=== PATIENT | female | born 1985 | race American Indian/Alaskan Native ===

== ENCOUNTER 2019-09-30 00:39 | Emergency (ER) | payer MEDICAID ==
[2019-09-30 00:57] VITALS: BP 134/84
[2019-09-30 01:25] LABS: Hematocrit 34.1 % (30.3-42.9); Hemoglobin 11.4 gm/dl (10.1-14.3); Mean Corpuscular HGB Conc 34 % (30-34); Mean Corpuscular Volume 83 fl (79-97); Platelet Count 246 K/mm3 (140-440); Red Blood Count 4.12 M/mm3 (3.65-5.03); Red Cell Distribution Width 14.5 % (13.2-15.2)
[2019-09-30] MEDS ORDERED: ONDANSETRON 4 MG ODT TAB PO ONE (01:40)
[2019-09-30 01:43] LABS: Bilirubin,Urine NEG (Negative); Blood,Urine NEG (Negative); Color,Urine Yellow (Yellow); Mucus,Urine 1+ /HPF; Protein,Urine <15 mg/dL mg/dL (Negative)
[2019-09-30 01:52] LABS: Alanine Aminotransferase 9 units/L (7-56); Albumin 3.4 g/dL (3.9-5); BUN/Creatinine Ratio 12; Blood Urea Nitrogen 6 mg/dL (7-17); Calcium 8.8 mg/dL (8.4-10.2); Hemolysis Index 28
[2019-09-30] MEDS ORDERED: SODIUM CHLORIDE 0.9% 500 ML 500 ML IV ONE (01:59)
--- NOTE | 2019-09-30 02:02 | Emergency Department Report ---
ED Abdominal Pain HPI - General Chief Complaint: Abdominal Pain Stated Complaint: DIZZINESS/ABD PAIN Time Seen by Provider: 09/30/19 01:29 Source: patient Mode of arrival: Ambulatory Limitations: No Limitations - History of Present Illness Initial Comments: Ms. Christensen is a 34-year-old -[place] female she is G4, last menstrual cycle 12 weeks ago. He presents for left-sided low quadrant and flank pain radiating to suprapubic she states urinary frequency she had spotting 2 weeks ago and spotting 1 week ago with no bleeding at this time she has has not had ultrasound to this point. She is followed by [facility]. She denies fevers or chills there is no nausea vomiting. She denies dysuria ,there is urinary frequency. she is denies concern for STI. MD Complaint: abdominal pain Onset/Timin -: week(s) Location: LLQ, suprapubic Radiation: suprapubic Severity scale (0 -10): 4 Quality: cramping Consistency: intermittent Improves With: nothing Worsens With: movement Associated Symptoms: nausea, dysuria (frequency). denies: vomiting, diarrhea, fever, chills, constipation - Related Data LMP Date: 06/21/19 LMP (females 10-50): 3 months Previous Rx's Medication Instructions Recorded Last Taken Type Ibuprofen [Motrin] 800 mg PO Q8H PRN #30 tablet 01/06/15 Unknown Rx traMADoL [Ultram] 50 mg PO Q6HR PRN #14 tablet 01/06/15 Unknown Rx Acetaminophen [Acetaminophen TAB] 650 mg PO Q6HR PRN #30 tablet 09/30/19 Unknown Rx cephALEXin [Keflex] 500 mg PO BID 7 Days #17 cap 09/30/19 Unknown Rx Allergies Allergy/AdvReac Type Severity Reaction Status Date / Time No Known Allergies Allergy Verified 01/06/15 03:05 ED Review of Systems ROS: Stated complaint: DIZZINESS/ABD PAIN Other details as noted in HPI Constitutional: denies: chills, fever Eyes: denies: eye pain, eye discharge, vision change ENT: denies: ear pain, throat pain Respiratory: denies: cough, shortness of breath, wheezing Cardiovascular: denies: chest pain, palpitations Endocrine: no symptoms reported Gastrointestinal: abdominal pain, nausea. denies: vomiting, diarrhea, constipation, melena Genitourinary: urgency, frequency. denies: dysuria, hematuria, discharge Musculoskeletal: back pain (left flank). denies: joint swelling, arthralgia Skin: denies: rash, lesions Neurological: denies: headache, weakness, paresthesias Psychiatric: denies: anxiety, depression Hematological/Lymphatic: denies: easy bleeding, easy bruising ED Past Medical Hx - Past Medical History Previous Medical History?: Yes Hx Hypertension: Yes - Surgical History Past Surgical History?: No - Social History Smoking Status: Current Every Day Smoker Substance Use Type: None - Medications Home Medications: Home Medications Medication Instructions Recorded Confirmed Last Taken Type Ibuprofen [Motrin] 800 mg PO Q8H PRN #30 tablet 01/06/15 Unknown Rx traMADoL [Ultram] 50 mg PO Q6HR PRN #14 tablet 01/06/15 Unknown Rx Acetaminophen [Acetaminophen TAB] 650 mg PO Q6HR PRN #30 tablet 09/30/19 Unknown Rx cephALEXin [Keflex] 500 mg PO BID 7 Days #17 cap 09/30/19 Unknown Rx ED Physical Exam - General Limitations: No Limitations General appearance: alert, in no apparent distress - Head Head exam: Present: atraumatic - Eye Eye exam: Present: normal appearance, PERRL, EOMI Pupils: Present: normal accommodation - ENT ENT exam: Present: mucous membranes moist - Neck Neck exam: Present: normal inspection - Respiratory Respiratory exam: Present: normal lung sounds bilaterally. Absent: respiratory distress, wheezes, stridor, chest wall tenderness - Cardiovascular Cardiovascular Exam: Present: regular rate, normal rhythm, normal heart sounds. Absent: systolic murmur, diastolic murmur, rubs, gallop - GI/Abdominal GI/Abdominal exam: Present: soft, tenderness (bilat lower abd ), normal bowel sounds. Absent: guarding, rebound, rigid, bruit, hernia - Rectal Rectal exam: Present: deferred - External exam: Present: other (pt deferrs to OBGYN) - Extremities Exam Extremities exam: Present: normal inspection, full ROM, pedal edema. Absent: tenderness - Back Exam Back exam: Present: normal inspection, full ROM. Absent: tenderness, CVA tenderness (R), CVA tenderness (L) - Neurological Exam Neurological exam: Present: alert, oriented X3, CN II-XII intact, normal gait - Psychiatric Psychiatric exam: Present: normal affect, normal mood - Skin Skin exam: Present: warm, dry, intact, normal color. Absent: rash ED Course Vital Signs 09/30/19 09/30/19 00:44 03:10 Temperature 98.8 F Pulse Rate 80 Respiratory 18 20 Rate Blood Pressure 134/84 O2 Sat by Pulse 100 Oximetry ED Medical Decision Making - Lab Data Result diagrams: 09/30/19 01:11 09/30/19 01:11 Labs 09/30/19 09/30/19 09/30/19 01:11 01:11 01:11 WBC 5.7 RBC 4.12 Hgb 11.4 Hct 34.1 MCV 83 MCH 28 MCHC 34 RDW 14.5 Plt Count 246 Sodium 140 Potassium 4.0 Chloride 108.4 H Carbon Dioxide 17 L Anion Gap 19 BUN 6 L Creatinine 0.5 L Estimated GFR > 60 BUN/Creatinine Ratio 12 Glucose 91 Calcium 8.8 Total Bilirubin < 0.20 AST 15 ALT 9 Alkaline Phosphatase 72 Total Protein 7.2 Albumin 3.4 L Albumin/Globulin Ratio 0.9 HCG, Qual Positive Urine Color Urine Turbidity Urine pH Ur Specific [place] Urine Protein Urine Glucose (UA) Urine Ketones Urine Blood Urine Nitrite Urine Bilirubin Urine Urobilinogen Ur Leukocyte Esterase Urine WBC (Auto) Urine RBC (Auto) U Epithel Cells (Auto) Urine Mucus 09/30/19 01:20 WBC RBC Hgb Hct MCV MCH MCHC RDW Plt Count Sodium Potassium Chloride Carbon Dioxide Anion Gap BUN Creatinine Estimated GFR BUN/Creatinine Ratio Glucose Calcium Total Bilirubin AST ALT Alkaline Phosphatase Total Protein Albumin Albumin/Globulin Ratio HCG, Qual Urine Color Yellow Urine Turbidity Clear Urine pH 6.0 Ur Specific [place] 1.025 Urine Protein <15 mg/dl Urine Glucose (UA) Neg Urine Ketones Neg Urine Blood Neg Urine Nitrite Neg Urine Bilirubin Neg Urine Urobilinogen 4.0 Ur Leukocyte Esterase Neg Urine WBC (Auto) 3.0 Urine RBC (Auto) 4.0 U Epithel Cells (Auto) 5.0 Urine Mucus 1+ - Radiology Data Radiology results: report reviewed, image reviewed Findings [facility] [address] [place] [address] Ultrasound Report Signed Patient: YESSI CHRISTENSEN MR#: [id number] : 1985 Acct:[id number] Age/Sex: 34 / F ADM Date: 09/30/19 Loc: ED Attending Dr: Ordering Physician: KENDRA LUKE NP Date of Service: 09/30/19 Procedure(s): US OB >= 14 weeks Fetus Accession Number(s): [id number] cc: KENDRA LUKE NP ULTRASOUND OBSTETRIC Indication: abd pain pos preg Findings: There is a single intrauterine . BPD = 2.4 cm = 14 weeks, 0 day(s). Head circumference = 9.7 cm = 14 weeks, 3 day(s). Abdominal circumference = 8.1 cm = 14 weeks, 3 day(s). Femur length = 1.2 cm = 13 weeks, 4 day(s). Overall estimated sonographic age = 14 weeks, 1 day(s). heart rate is 145 beats per minute. position is cephalic. Cervix appears closed. movement is present. Placenta is posteriorly on the right and grade 0 . Amniotic fluid volume appears normal. Impression: 1. Single living intrauterine with estimated sonographic age of 14 weeks, 1 day(s). 2. No sonographic abnormality identified. Signer Name: Nasim Cho MD Signed: 09/30/2019 3:01 AM Workstation Name: [id number] Transcribed By: SS Dictated By: Nasim Cho MD Electronically Authenticated By: Nasim Cho MD S igned Date/Time: 09/30/19 030 DD/ 025 TD/TT: - Medical Decision Making Ultrasound OB, single IUP 14 weeks and 1 day, heart rate 145, no abno rmalities. Plan treat for urinary urgency, patient will follow-up with [facility] in 2 to 3 days. Will DC to home with prescription for Keflex , and Tylenol. Patient is currently tolerating p.o. intake without symptoms. Patient DC'd home in stable condition at this time Critical care attestation.: If time is entered above; I have spent that time in minutes in the direct care of this critically ill patient, excluding procedure time. ED Disposition Clinical Impression: Urinary tract infection during Qualifiers: Trimester: second trimester Qualified Code(s): O23.42 - Unspecified infection of urinary tract in , second trimester Qualifiers: Weeks of gestation: 14 weeks Qualified Code(s): Z3A.14 - 14 weeks gestation of Disposition: DC-01 TO HOME OR SELFCARE Is pt being admited?: No Does the pt Need Aspirin: No Condition: Stable Instructions: Urinary Tract Infection in Women (ED), (ED) Prescriptions: Acetaminophen [Acetaminophen TAB] 650 mg PO Q6HR PRN #30 tablet PRN Reason: Pain cephALEXin [Keflex] 500 mg PO BID 7 Days #17 cap Referrals: [facility] [Provider Group] - 3-5 Days Forms: Work/School Release Form(ED) Time of Disposition: 03:32
[2019-09-30] MEDS ORDERED: ACETAMINOPHEN 500 MG TAB PO ONE (02:58)
[2019-09-30] MEDS ORDERED: SODIUM CHLORIDE 0.9% 1000 ML 1,000 ML IV ONE (02:59)
[2019-09-30] MEDS ORDERED: SODIUM CHLORIDE 0.9% 1000 ML 1,000 ML ONE (03:00)
--- NOTE | 2019-09-30 03:05 | Ultrasound Report ---
ULTRASOUND OBSTETRIC Indication: abd pain pos preg Findings: There is a single intrauterine . BPD = 2.4 cm = 14 weeks, 0 day(s). Head circumference = 9.7 cm = 14 weeks, 3 day(s). Abdominal circumference = 8.1 cm = 14 weeks, 3 day(s). Femur length = 1.2 cm = 13 weeks, 4 day(s). Overall estimated sonographic age = 14 weeks, 1 day(s). heart rate is 145 beats per minute. position is cephalic. Cervix appears closed. movement is present. Placenta is posteriorly on the right and grade 0 . Amniotic fluid volume appears normal. Impression: 1. Single living intrauterine with estimated sonographic age of 14 weeks, 1 day(s). 2. No sonographic abnormality identified. Signer Name: Nasim Cho MD Signed: 09/30/2019 3:01 AM Workstation Name: [id number]
== END 2019-09-30 03:52 | disposition home or self-care (01) ==
LOC: ED 00:39
DX: O23.42 Unspecified infection of urinary tract in pregnancy, second trimester (principal); I10 Essential (primary) hypertension; O99.332 Smoking (tobacco) complicating pregnancy, second trimester; Z3A.14 14 weeks gestation of pregnancy
CPT/HCPCS: 36415; 76805; 80053; 81001; 84702; 84703; 85027; 96360; 99284; J7030; Q0162

== ENCOUNTER 2021-07-30 01:17 | Emergency (ER) | payer MEDICAID ==
[2021-07-30 02:52] VITALS: BP 177/105
[2021-07-30] MEDS ORDERED: MORPHINE 4 MG/1 ML INJ IM ONE (06:11)
[2021-07-30] MEDS ORDERED: ONDANSETRON 4 MG ODT TAB PO ONE (06:11)
--- NOTE | 2021-07-30 06:12 | Emergency Department Report ---
ED Back Pain/Injury HPI - General Chief Complaint: Back Pain/Injury Stated Complaint: LOWER BACK AND LEG PAIN Time Seen by Provider: 07/30/21 05:58 Source: patient Limitations: No Limitations - History of Present Illness Initial Comments: Patient presents with back pain of a several day history. This is nontraumatic. She states he is having pain in the lower back. She woke up with it several days ago. She did go to see a physician and was prescribed Robaxin and Motrin. That helped for a couple of days. Now she is having increasing pain. It is described as an aching pain and soreness in the lower back. It does radiate down the left leg but only when she stands or walks. When she is recumbent or sitting, she does not have left leg pain. She is also now developed some urinary frequency and urgency. There is no saddle anesthesia. She has no incontinence. There is no history of trauma. She denies fevers or chills. She has not noticed any upper extremity complaints. There is no abdominal complaint. She came in for evaluation treatment as she has never had symptoms like this before. - Related Data Previous Rx's Medication Instructions Recorded Last Taken Type Ibuprofen [Motrin] 800 mg PO Q8H PRN #30 tablet 01/06/15 Unknown Rx traMADoL [Ultram] 50 mg PO Q6HR PRN #14 tablet 01/06/15 Unknown Rx Acetaminophen [Acetaminophen TAB] 650 mg PO Q6HR PRN #30 tablet 09/30/19 Unknown Rx cephALEXin [Keflex] 500 mg PO BID 7 Days #17 cap 09/30/19 Unknown Rx Lidocaine [Lidoderm] 1 each TP DAILY #30 adh..patch 07/30/21 Unknown Rx Metaxalone [Skelaxin] 800 mg PO TID #9 tablet 07/30/21 Unknown Rx Allergies Allergy/AdvReac Type Severity Reaction Status Date / Time No Known Allergies Allergy Verified 07/30/21 02:53 ED Review of Systems ROS: Stated complaint: LOWER BACK AND LEG PAIN Other details as noted in HPI Comment: All other systems reviewed and negative Constitutional: denies: fever Eyes: denies: vision change ENT: denies: throat pain Respiratory: denies: cough Cardiovascular: denies: chest pain Endocrine: denies: unexplained weight loss Gastrointestinal: denies: abdominal pain Genitourinary: as per HPI Musculoskeletal: as per HPI Skin: denies: rash Neurological: denies: headache Hematological/Lymphatic: denies: easy bruising ED Past Medical Hx - Past Medical History Hx Hypertension: Yes - Surgical History Past Surgical History?: No - Family History Family history: hypertension - Social History Smoking Status: Current Every Day Smoker (We discussed tobacco cessation x3 minutes) Substance Use Type: None - Medications Home Medications: Home Medications Medication Instructions Recorded Confirmed Last Taken Type Ibuprofen [Motrin] 800 mg PO Q8H PRN #30 tablet 01/06/15 Unknown Rx traMADoL [Ultram] 50 mg PO Q6HR PRN #14 tablet 01/06/15 Unknown Rx Acetaminophen [Acetaminophen TAB] 650 mg PO Q6HR PRN #30 tablet 09/30/19 Unknown Rx cephALEXin [Keflex] 500 mg PO BID 7 Days #17 cap 09/30/19 Unknown Rx Lidocaine [Lidoderm] 1 each TP DAILY #30 adh..patch 07/30/21 Unknown Rx Metaxalone [Skelaxin] 800 mg PO TID #9 tablet 07/30/21 Unknown Rx ED Physical Exam - General Limitations: No Limitations, Other (Pulse ox noted and normal) General appearance: alert, in no apparent distress, obese, other (Appears uncomfortable) - Head Head exam: Present: atraumatic, normocephalic - Eye Eye exam: Present: normal appearance, EOMI - ENT ENT exam: Present: normal orophraynx, normal external ear exam - Neck Neck exam: Present: normal inspection, meningismus - Respiratory Respiratory exam: Present: normal lung sounds bilaterally. Absent: respiratory distress - Cardiovascular Cardiovascular Exam: Present: regular rate, normal rhythm - GI/Abdominal GI/Abdominal exam: Present: soft. Absent: tenderness - Extremities Exam Extremities exam: Present: normal capillary refill - Back Exam Back exam: Present: paraspinal tenderness (Diffuse lumbar). Absent: CVA tenderness (R), CVA tenderness (L) - Neurological Exam Neurological exam: Present: alert, oriented X3, CN II-XII intact, abnormal gait (Antalgic), reflexes normal, other (Negative straight leg raise). Absent: motor sensory deficit - Psychiatric Psychiatric exam: Present: normal affect, normal mood - Skin Skin exam: Present: warm, dry ED Course Vital Signs 07/30/21 02:50 Temperature 97.8 F Pulse Rate 71 Respiratory 18 Rate Blood Pressure 177/105 [Left] O2 Sat by Pulse 100 Oximetry - Reevaluation(s) Reevaluation #1: 07/30/21 06:12 UA ordered. Reevaluation #2: 07/30/21 07:57 UA was noted. Patient was discharged. ED Medical Decision Making - Medical Decision Making Patient presents with back pain of unclear etiology. Is nontraumatic. There is no concern for fracture or dislocation. There is no concern for cord injury. She has no history of diabetes, fever, or drug abuse. I do not believe this represents epidural abscess. She is not . Ectopic is excluded. There is no urinary tract infection or pyelonephritis. She does not have hematuria to suggest ureteral colic. There is no abdominal tenderness that would suggest referred pain from any type of abdominal source. Critical Care Time: No Critical care attestation.: If time is entered above; I have spent that time in minutes in the direct care of this critically ill patient, excluding procedure time. ED Disposition Clinical Impression: Lumbosacral pain Disposition: 01 HOME / SELF CARE / HOMELESS Is pt being admited?: No Condition: Stable Additional Instructions: Ice and rest. Return for problems. Follow-up with your regular doctor. Take the medications as prescribed. Prescriptions: Lidocaine [Lidoderm] 1 each TP DAILY #30 adh..patch Metaxalone [Skelaxin] 800 mg PO TID #9 tablet Referrals: PRIMARY CARE, [Primary Care Provider] - 3-5 Days
[2021-07-30 06:43] LABS: Bilirubin,Urine NEG (Negative); Blood,Urine NEG (Negative); Color,Urine Yellow (Yellow); Mucus,Urine FEW /HPF; Protein,Urine <15 mg/dL mg/dL (Negative); Urobilinogen,Urine < 2.0 mg/dL (<2.0)
[2021-07-30 06:50] LABS: HCG Qualitative,Urine Negative (Negative)
== END 2021-07-30 08:54 | disposition home or self-care (01) ==
LOC: ED 01:17
DX: M54.50 Low back pain, unspecified (principal); F17.200 Nicotine dependence, unspecified, uncomplicated; I10 Essential (primary) hypertension
CPT/HCPCS: 81001; 81025; 96372; 99283; J2270; J3490; Q0162